=== PATIENT | female | born 2000 | race Two or more races ===

== ENCOUNTER 2023-02-10 16:32 | Emergency (ER) | payer MEDICAID ==
[~2023-02-10] VITALS: Ht 170.2 cm; Wt 105.6 kg
[2023-02-10 17:31] VITALS: BP 134/92; PULSE 78; RESP 18; O2SAT 98
== END 2023-02-10 21:42 | disposition left against medical advice (07) ==
LOC: ER 16:32
DX: M25.552 Pain in left hip (principal); Z53.21 Procedure and treatment not carried out due to patient leaving prior to being seen by health care provider